=== PATIENT | male | born 1955 | race Caucasian/White ===

== ENCOUNTER 2022-03-12 08:40 | Day surgery (SDC) | payer MEDICARE ==
[~2022-03-12] VITALS: Ht 170.2 cm; Wt 85.3 kg
[2022-03-12] MEDS ORDERED: LIDOcaine 1% 30ml preserv. free vial SQ STA (08:52)
[2022-03-12] MEDS ORDERED: albumin 25% 100mL bottle x 1 IV PRN (09:00)
[2022-03-12] MEDS ORDERED: PRAV40TA3 PO (09:04)
[2022-03-12] MEDS ORDERED: FURO40TA4 PO (09:04)
[2022-03-12] MEDS ORDERED: CHOL400T57 PO (09:04)
[2022-03-12] MEDS ORDERED: CARV3.123 PO (09:04)
[2022-03-12] MEDS ORDERED: SPIR100T5 PO (09:04)
[2022-03-12 09:10] VITALS: BP 117/80
[2022-03-12 10:11] VITALS: BP 101/65
[2022-03-12 10:26] VITALS: BP 102/66
[2022-03-12 10:41] VITALS: BP 92/64
[2022-03-12 10:56] VITALS: BP 102/66
[2022-03-12 11:11] VITALS: BP 101/68
== END 2022-03-12 11:25 | disposition home or self-care (01) ==
LOC: SSTAY O 08:40
PROVIDERS: ATTEND Radiology Vascular & Interventional Radiology
DX: R18.8 Other ascites (principal); K74.60 Unspecified cirrhosis of liver; Z72.89 Other problems related to lifestyle; Z79.899 Other long term (current) drug therapy; Z98.890 Other specified postprocedural states; Z85.05 Personal history of malignant neoplasm of liver
CPT/HCPCS: 49083; J3490; P9047; A6258

== ENCOUNTER 2022-04-19 06:54 | Day surgery (SDC) | payer MEDICARE, OTHER ==
[2022-04-19] VITALS (8 sets, daily range): BP systolic 88–102; BP diastolic 55–65
[~2022-04-19] VITALS: Ht 170.2 cm; Wt 81.3 kg
[~2022-04-19 06:54] MED LIST: CARV3.123 PO; CHOL400T57 PO; FURO40TA4 PO; PRAV40TA3 PO; SPIR100T5 PO
[2022-04-19] MEDS ORDERED: LIDOcaine 1% 30ml preserv. free vial SQ STA (07:59)
[2022-04-19] MEDS: albumin 25% 100mL bottle x 1 IV PRN ×2 (08:57→08:58)
== END 2022-04-19 10:15 | disposition home or self-care (01) ==
LOC: SSTAY O 06:54
PROVIDERS: ATTEND Radiology Vascular & Interventional Radiology
DX: R18.8 Other ascites (principal); K74.60 Unspecified cirrhosis of liver; Z85.05 Personal history of malignant neoplasm of liver; Z79.899 Other long term (current) drug therapy; Z98.890 Other specified postprocedural states
CPT/HCPCS: 49083; J3490; P9047; A6258

== ENCOUNTER 2022-05-03 06:27 | Day surgery (SDC) | payer MEDICARE, OTHER, SELFPAY ==
[~2022-05-03] VITALS: Ht 170.2 cm; Wt 79.2 kg
[2022-05-03] MEDS ORDERED: LIDOcaine 1% 30ml preserv. free vial SQ STA (06:40)
[2022-05-03] MEDS ORDERED: albumin 25% 100mL bottle x 1 IV PRN (06:45)
[2022-05-03 07:01] VITALS: BP 107/59
[2022-05-03 08:25] VITALS: BP 102/64
[2022-05-03 08:40] VITALS: BP 98/63
[2022-05-03 08:55] VITALS: BP 98/65
[2022-05-03 09:10] VITALS: BP 98/60
[2022-05-03 09:25] VITALS: BP 97/59
== END 2022-05-03 09:30 | disposition home or self-care (01) ==
LOC: SSTAY O 06:27
PROVIDERS: ATTEND Radiology Vascular & Interventional Radiology
DX: R18.8 Other ascites (principal); K74.60 Unspecified cirrhosis of liver; Z85.05 Personal history of malignant neoplasm of liver
CPT/HCPCS: 49083; J3490; P9047; 88108; 88305; A6258

== ENCOUNTER 2022-05-24 07:07 | Day surgery (SDC) | payer MEDICARE, OTHER ==
[2022-05-24] VITALS (7 sets, daily range): BP systolic 101–130; BP diastolic 59–68
[~2022-05-24] VITALS: Ht 170.2 cm; Wt 72.7 kg
[2022-05-24] MEDS ORDERED: LIDOcaine 1% 30ml preserv. free vial SQ STA (07:24)
[2022-05-24] MEDS ORDERED: normal saline 1000ml 1,000 ML IV PRN (07:25)
[2022-05-24] MEDS ORDERED: albumin 25% 100mL bottle x 1 IV PRN (07:25)
[2022-05-24] MEDS ORDERED: MIDO5TAB4 PO (07:43)
== END 2022-05-24 10:00 | disposition home or self-care (01) ==
LOC: SSTAY O 07:07
PROVIDERS: ATTEND Radiology Vascular & Interventional Radiology
DX: R18.8 Other ascites (principal); K74.60 Unspecified cirrhosis of liver; Z72.89 Other problems related to lifestyle; Z79.899 Other long term (current) drug therapy; Z98.890 Other specified postprocedural states
CPT/HCPCS: 49083; J3490; P9047; 88108; 88305; A6258; A6449

== ENCOUNTER → 2022-07-12 | Day surgery (SDC) | payer MEDICARE, OTHER ==
[2022-07-12] VITALS (7 sets, daily range): BP systolic 85–96; BP diastolic 57–59
[~2022-07-12] VITALS: Ht 170.2 cm; Wt 63.7 kg
[~2022-07-12] MED LIST changes: -CARV3.123 PO; +LIDOcaine 1% 30ml preserv. free vial SQ STA; +MIDO5TAB4 PO; +albumin 25% 100mL bottle x 1 IV PRN
== END | disposition home or self-care (01) ==
LOC: SSTAY O 08:41
PROVIDERS: ATTEND Radiology Diagnostic Radiology
DX: R18.8 Other ascites (principal); R14.0 Abdominal distension (gaseous); K74.60 Unspecified cirrhosis of liver; Z72.89 Other problems related to lifestyle; Z85.05 Personal history of malignant neoplasm of liver; Z98.890 Other specified postprocedural states; Z79.899 Other long term (current) drug therapy
CPT/HCPCS: 49083; J3490; P9047; A6258; A6449

== ENCOUNTER 2022-09-10 09:10 | Day surgery (SDC) | payer MEDICARE ==
[~2022-09-10] VITALS: Ht 170.2 cm; Wt 60.3 kg
[~2022-09-10 09:10] MED LIST changes: -LIDOcaine 1% 30ml preserv. free vial SQ STA; -albumin 25% 100mL bottle x 1 IV PRN
[2022-09-10] MEDS ORDERED: LIDOcaine 1%/PF 5ML 10 MG/ML VIAL SQ ONE (09:15)
[2022-09-10] MEDS ORDERED: albumin 25% 100mL bottle x 1 IV PRN (09:40)
[2022-09-10] MEDS ORDERED: NO HOME MEDS (09:43)
[2022-09-10 09:50] VITALS: BP 78/53
--- NOTE | 2022-09-10 10:10 | NUR ---
Patient hypotensive; Complaining of blood in stool for the last couple of days. Son stated that he tried to get patient to go to ER. CRISTIANA Jamison at bedside; after examination, he recommended patient go to ER to be evaluated. CRISTIANA Jamison called ER. ER accepted patient and patient taken directly to ER room 2. Nurse at bedside.
== END 2022-09-10 10:10 | disposition home or self-care (01) ==
LOC: SSTAY O 09:10
PROVIDERS: ATTEND Radiology Vascular & Interventional Radiology
DX: R18.8 Other ascites (principal); Z53.8 Procedure and treatment not carried out for other reasons; C22.0 Liver cell carcinoma; K74.60 Unspecified cirrhosis of liver; I95.9 Hypotension, unspecified; Z98.890 Other specified postprocedural states; Z72.89 Other problems related to lifestyle
CPT/HCPCS: A6258; A6449